=== PATIENT | female | born 1970 | race Caucasian/White ===

== ENCOUNTER → 2018-01-03 | Outpatient (CLI) | payer OTHER ==
[~2018-01-03] MED LIST: ALLEGRA30 MG/5 ML; DEPAKENE250 MG PO; FIBER CHOICE1 EACH PO; FIORICET PO; FLONASE 0.05%50 MCG NASAL; FLONASE16 GM NS; GLUCOPHAGE XR750 MG PO; IBUPROFEN100 MG/52 PO; KEPPRA 100100 MG/M1; KEPPRA 500 MG500 M1 PO; MAGOX 400400 MG PO; MECLIZINE HCL25 M1 PO; MOTOFEN TABLET1 EACH; MULTIPLE VITAM1 EAC3 PO; PHAZYME180 MG; PREVACID 30MG C30 M1 PO; PRINIVIL20 MG PO; PROAIR HFA8.5 GM IH; PROBIOTIC1 EAC1 PO; PROPRANOLOL 4040 M1 PO; RANITIDINE 150150 MG PO; RIZATRIPTAN5 MG PO; TRAMADOL 50 MG50 MG PO; VITAMIN C100 M1 PO; ZOFRAN ODT4 MG PO; ZOFRAN4 MG PO; ZYRTEC10 M2 PO; ZYRTEC10 M5 PO
== END ==
LOC: ULTRA 07:53
DX: K76.0 Fatty (change of) liver, not elsewhere classified (principal); E11.9 Type 2 diabetes mellitus without complications; Z90.49 Acquired absence of other specified parts of digestive tract